=== PATIENT | male | born 1980 | race Caucasian/White ===

== ENCOUNTER 2017-04-01 11:29 | Emergency (ER) | payer OTHER ==
--- NOTE | ~2017-04-01 | CT101 ---
[facility]. [facility] A Service of [facility] RADIOLOGY TEXT RESULTS PATIENT: ALESSANDRA CONRAD LOCATION: SED : [birth year] UNIT #: [id number] AGE: [address]: Pablo Gleason MD SEX: M ORDER DR: [id number] [place] [id number] E MR#: [id number] Acc #: [id number] NAME: ALESSANDRA CONRAD. : 1980 SEX: M STUDY DATE/TIME: 04/01/2017 11:48 UNIT: SED ROOM: STUDY DESCRIPTION: CT Maxillofacial Area Wo Cont Attending Physician: Pablo Gleason M.D. Ordering Physician: Pablo Gleason M.D. Primary Care Physician: Adan Zuniga M.D. MEDICAL IMAGING REPORT This report is preliminary unless electronic signature is present. EXAM Maxillofacial CT. INDICATIONS Fall this morning. 20 minutes prior to arrival. Patient developed lacerations above his left eye. TECHNIQUE Axial CT images were obtained through the facial bones. No contrast was administered. Coronal reformatted images were obtained. This CT exam was performed with one or more of the following radiation dose reduction techniques: automatic exposure control, adjustment of mA and/or kV according to patient size, and iterative reconstruction. FINDINGS Patient does have a soft tissue laceration overlying the left frontal bone within the supraorbital region. However, no underlying calvarial fracture is seen. Patient has some deformity of the nasal bones; however, appears to be chronic. Correlate with any prior history of nasal bone fracture is suggested. No acute facial bone fractures are seen. The patient's orbits appear unremarkable. There is no pre or post-septal involvement. No other focal soft tissue abnormalities are seen. Patient does have some prominent cervical lymph nodes, for example, left cervical lymph node measures about 1.3 x 1.3 cm. Finding is nonspecific, but it certainly could reflect a benign reactive node nasopharynx and oropharynx appear unremarkable. Paranasal sinuses appear clear, as do visualized portions of the mastoid air cells. IMPRESSION 1. No acute facial bone fracture is seen. 2. Left frontal soft tissue laceration without underlying calvarial fracture. 3. 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 [facility] A Service of [facility] & [facility] RADIOLOGY TEXT RESULTS PATIENT: ALESSANDRA CONRAD LOCATION: [facility] [place] [place] : [birth year] UNIT #: [id number] AGE: [address]: Pablo Gleason MD SEX: M ORDER DR: fractures. Please correlate with history. 4. Prominent mary's igloo of cervical lymph nodes are nonspecific but certainly these could reflect been a benign reactive nodes. Dictated by... Fawn Agarwal M.D. THIS IS AN ELECTRONICALLY VERIFIED REPORT Fawn Agarwal M.D. at 04/02/2017 1:10 PM UCHE/ike TD: 04/02/2017 05:29 JOB #: [id number] MEDICAL IMAGING REPORT Page 1 of 1
--- NOTE | ~2017-04-01 | CT71 ---
[facility] A Service [facility] RADIOLOGY TEXT RESULTS PATIENT: ALESSANDRA CONRAD LOCATION: SED : [birth year] UNIT #: [id number] AGE: [address]: Pablo Gleason MD SEX: M ORDER DR: [id number] [place] [id number] E MR#: [id number] Acc #: [id number] NAME: ALESSANDRA CONRAD : 1980 SEX: M STUDY DATE/TIME: 04/01/2017 11:56 UNIT: SED ROOM: STUDY DESCRIPTION: CT Head Wo Contrast Attending Physician: Pablo Gleason M.D. Ordering Physician: Pablo Gleason M.D. Primary Care Physician: Adan Zuniga M.D. MEDICAL IMAGING REPORT This report is preliminary unless electronic signature is present. EXAM CT head without contrast. INDICATIONS Fall. Facial lacerations. Headache. TECHNIQUE Axial noncontrast images were obtained from the skull base to the vertex. This CT exam was performed with one or more of the following radiation dose reduction techniques: automatic exposure control, adjustment of mA and/or kV according to patient size, and iterative reconstruction. COMPARISON None available. FINDINGS Ventricular size and configuration are normal. There is no evidence of acute infarct or hemorrhage. There are no extraaxial fluid collections. No mass lesion or mass effect is seen. There are no skull fractures. Please refer to the maxillofacial CT for details on the facial trauma. Patient does have a laceration of the left frontal convexity. IMPRESSION 1. No acute intracranial findings. 2. Facial trauma. Please refer to the maxillofacial CT for details. Dictated by... Ramesh iWlson M.D. THIS IS AN ELECTRONICALLY VERIFIED REPORT [facility] A Service of [facility] RADIOLOGY TEXT RESULTS PATIENT: ALESSANDRA CONRAD LOCATION: SED : [birth year] UNIT #: [id number] AGE: [address]: Pablo Gleason MD SEX: M ORDER DR: Ramesh Wilson M.D. at 04/04/2017 11:42 AM Kristy TD: 04/03/2017 19:20 JOB #: [id number] MEDICAL IMAGING REPORT Page 1 of 1
[~2017-04-01 11:29] MED LIST: ANUSOL-HC SUPP25 M1 PR; ANUSOL-HC25 MG/SUPP PR; BACTROBAN22 GM; BP PILL; CARAFATE1 G PO; CIPROFLOXACIN500 M1 PO; DOCUSATE SODIU100 MG PO; ERYTHROMYCIN O3.5 GM OD; FAMOTIDINE PO; FLAGYL PO; FLONASE 0.05% N16 G1; KEFLEX500 M2 PO; LORTAB 10-5001 EACH PO; LORTAB 5-325 M1 EACH PO; NAPHCON-A EYE D15 M1 OU; NAPROXEN PO; NO MEDICATIONS; NUPERCAINAL 1%30 GM EXT; PHENERGAN25 M1 DOB; PHENERGAN25 MG PO; PREDNISONE50 MG PO; PROTONIX PO; TYLENOL #3 PO; VOLTAREN50 MG PO; VOLTAREN75 MG PO; ZANTAC150 MG PO; ZOFRAN ODT4 MG PO
== END 2017-04-01 12:51 | disposition home or self-care (01) ==
LOC: SED 11:29
DX: S01.412A Laceration without foreign body of left cheek and temporomandibular area, initial encounter (principal); S01.81XA Laceration without foreign body of other part of head, initial encounter; S01.01XA Laceration without foreign body of scalp, initial encounter; Z23 Encounter for immunization; S50.02XA Contusion of left elbow, initial encounter; S70.02XA Contusion of left hip, initial encounter; I10 Essential (primary) hypertension; K57.90 Diverticulosis of intestine, part unspecified, without perforation or abscess without bleeding; F17.210 Nicotine dependence, cigarettes, uncomplicated; W18.00XA Striking against unspecified object with subsequent fall, initial encounter; Y92.009 Unspecified place in unspecified non-institutional (private) residence as the place of occurrence of the external cause
CPT/HCPCS: 12002; 12011; 70450; 70486; 90471; 90715; 99283